=== PATIENT | female | born 1965 | race Caucasian/White ===

== ENCOUNTER 2023-10-10 12:20 | Emergency (ER) | payer OTHER ==
[~2023-10-10] VITALS: Ht 167.6 cm; Wt 74.8 kg
[~2023-10-10 12:20] MED LIST: ZANTAC300 MG PO
[2023-10-10] MEDS ORDERED: COZAAR25 MG PO (12:56)
[2023-10-10] MEDS ORDERED: SYNTHROID125 MCG PO (12:56)
[2023-10-10 13:44] LABS: HEMATOCRIT 38.7 % (36.0-45.00); HEMOGLOBIN 12.7 g/dL (12.0-15.00); MEAN CELL VOLUME 79.6 fL (80.00-100.00); MEAN CORPUSCULAR HEMOGLOBIN 26.1 pg (27.00-32.0); MEAN CORPUSCULAR HGB CONC 32.7 g/dl (32.0-36.0); PLATELET COUNT 236 K/uL (150-450); RED BLOOD COUNT 4.86 M/uL (4.00-6.00); RED CELL DISTRIBUTION WIDTH 14.8 % (11.5-14.5)
[2023-10-10 14:11] LABS: CREATININE SERUM 0.71 mg/dL (0.55-1.02); GFR 84.55; POTASSIUM 3.53 mEq/L (3.5-5.1)
[2023-10-10 14:27] LABS: URINE APPEARANCE Clear; URINE BILIRRUBIN Negative (NEGATIVE); URINE BLOOD Small; URINE COLOR Yellow; URINE GLUCOSE Negative (NEGATIVE); URINE LEUKOCYTE Trace; URINE NITRATE Negative; URINE PROTEIN Negative (NEGATIVE); URINE UROBILINOGEN 0.2 E.U./dl
[2023-10-10 14:31] LABS: URINE BACTERIA 113.3 uL (0.0-1933); URINE EPITHELIAL CELLS 1.5 uL (0.0-38.8); URINE WBC 30.4 uL (0.0-23.2)
[2023-10-10] MEDS ORDERED: DICLOFENAC SODI75 MG PO (16:35)
[2023-10-10] MEDS ORDERED: MACRODANTIN100 M1 PO (16:35)
== END 2023-10-10 17:01 | disposition home or self-care (01) ==
LOC: ER 12:20
PROVIDERS: Emergency Medicine
DX: N39.0 Urinary tract infection, site not specified (principal); N20.0 Calculus of kidney; I10 Essential (primary) hypertension; K57.30 Diverticulosis of large intestine without perforation or abscess without bleeding